=== PATIENT | female | born 1980 | race Caucasian/White ===

== ENCOUNTER 2016-08-29 18:48 | Emergency (ER) | payer BC ==
[~2016-08-29] VITALS: Ht 167.6 cm; Wt 106.6 kg
--- NOTE | 2016-08-29 19:00 | NUR ---
Patient to ER bed 8 to gown for evaluation. Side rails up. Report given to ELSY ORTIZ.
[2016-08-29 19:04] VITALS: BP 124/68; PULSE 97; RESP 14; TEMP 99.7; O2SAT 95
[2016-08-29] MEDS ORDERED: NACL 0.9% 1,000 ML IV ONE (19:09)
--- NOTE | 2016-08-29 19:10 | NUR ---
DR. NICHOLS AT BEDSIDE EXAMINING TH EPT.
[2016-08-29] MEDS ORDERED: HYDROmorphone 1 MG INJ. 1 MG/ML AMPUL IVP ONE (19:15)
--- NOTE | 2016-08-29 19:15 | NUR ---
PT. PRESENTED TO ER AAOx4 C/O FEVER AND CHILLS FOR PAST 45 MIN STATES SHE IS NAUSEOUS, DENIES SOB, DENIES V/D C/O ABD PAIN 04/27 S/P GASTRIC SLEEVE SURGERY PERFORMED YESTERDAY, CLEAR SPEECH, CLEAR LUNGS, CAP REFIL <2SECS N ALL EXTREMITIES, PULSES WNL, ON SCHOOL PATROL
[2016-08-29 19:45] LABS: BASOPHILS % (AUTO) 0.5 % (0.0-2.0); EOSINOPHILS # (AUTO) 0.1 K/uL (0.0-0.4); EOSINOPHILS % (AUTO) 1.3 % (0.0-4.0); HEMATOCRIT 35.9 % (36-48); HEMOGLOBIN 11.9 g/dL (12.0-16.0); LYMPHOCYTES # (AUTO) 0.5 K/uL (1.0-5.5); MEAN CORPUSCULAR HEMOGLOBIN 27 pg (27-31); MEAN CORPUSCULAR HGB CONC 33 % (32-36); MEAN CORPUSCULAR VOLUME 82 fL (79.0-98.0); MONOCYTES # (AUTO) 0.5 K/uL (0.0-1.0); MONOCYTES % (AUTO) 8.8 % (1.7-9.3); NEUTROPHILS # (AUTO) 4.4 K/uL (1.8-7.7); NEUTROPHILS % (AUTO) 80.4 % (40.0-70.0); PLATELET COUNT (AUTO) 196 K/uL (130-430); RED BLOOD CELL COUNT(AUTO) 4.41 MIL/uL (4.2-6.2); RED CELL DISTRIBUTION WIDTH 12.8 % (9.0-15.0); WHITE BLOOD COUNT (AUTO) 5.5 K/uL (4.8-10.8)
[2016-08-29 19:49] LABS: CALCIUM 8.4 mg/dL (8.4-11.0); CREATININE 0.77 mg/dL (0.55-1.30); POTASSIUM 4.3 mmol/L (3.5-5.1)
[2016-08-29 19:54] LABS: ALBUMIN 3.4 g/dL (3.4-4.8); TOTAL BILIRUBIN 0.3 mg/dL (0.0-1.0); TOTAL PROTEIN, SERUM 7.1 g/dL (6.4-8.3)
[2016-08-29] MEDS: ONDANSETRON HCL 4 MG/2 ML VIAL IVP ONE ×2 (20:00→20:04)
--- NOTE | 2016-08-29 20:25 | NUR ---
X RAY AT BEDSIDE
[2016-08-29 20:26] LABS: BILIRUBIN,URINE NEGATIVE (NEGATIVE); BLOOD, URINE 2+ (NEGATIVE); COLOR,URINE YELLOW (YELLOW); GLUCOSE,URINE NEGATIVE (NEGATIVE); KETONES,URINE 3+ (NEGATIVE); LEUKOCYTE ESTERASE ,URINE NEGATIVE (NEGATIVE); NITRITE, URINE NEGATIVE (NEGATIVE); PH,URINE 6.5 (5.0-8.0); PROTEIN URINE TRACE (NEGATIVE); UROBILINOGEN,URINE 0.2 (0.2-1.0)
[2016-08-29 20:33] LABS: CLARITY/URINE SLIGHTLY HAZY (CLEAR)
[2016-08-29 20:34] LABS: BACTERIA,URINE FEW /HPF (None Seen); MUCUS,URINE 1+ /LPF (None Seen); RBC,URINE 0-3 /HPF (0-3); WBC,URINE 0-3 /HPF (0-3)
--- NOTE | 2016-08-29 20:35 | NUR ---
TEMP 98.1 PT. RESTING STATING THE PAIN INTERVENTION WORKED, PAIN 09/25
--- NOTE | 2016-08-29 21:30 | NUR ---
PT. RESTING, NO COMPLAINTS, IV REPOSITIONED AND FLUSHED
[2016-08-29] MEDS ORDERED: DIATR MEGLU/DIATRIZ SOD 30 ML SOLUTION PO ONE (21:50)
[2016-08-29] MEDS ORDERED: ONDANSETRON HCL 4 MG/2 ML VIAL IVP ONE (22:00)
--- NOTE | 2016-08-29 22:10 | NUR ---
PT. GIVEN ORAL CONTRAST TO DRINK BY MOUTH
--- NOTE | 2016-08-29 22:15 | NUR ---
PT. OUT TO [facility] FOR CT VIA TRANSPORTATION IN A GURNEY ACCOMPANIED BY EMS
--- NOTE | 2016-08-30 | NUR ---
Pt is back via BLS from [facility] for CT scan.
--- NOTE | 2016-08-30 00:10 | NUR ---
Pt is resting in her bed. Pt has 9/10 abd pain and is in mild discomfort. made aware of pain. Pt placed back on community association manager and will continue to monitor. Vitals WNL except for fever. No other injuries or complaints mentioned/noted. No distress noted. Addendum: 08/30/16 at 0349 by LILY Pt was sating on 90% on room air due to shallow respirations. Placed on 2 LPM of O2 NC. made aware.
--- NOTE | 2016-08-30 00:10 | NUR ---
Pt has a fever of 101.2. Dr. Donaldson made aware. Orders recieved.
[2016-08-30] MEDS ORDERED: MORPHINE 4 MG/ML INJ. SYRINGE IVP ONE (00:15)
--- NOTE | 2016-08-30 00:15 | NUR ---
Sepsis protocol reviewed with Dr. Donaldson. No further change in orders at this time.
[2016-08-30] MEDS ORDERED: ACETAMINOPHEN 500 MG TABLET ONE (00:23)
[2016-08-30] MEDS ORDERED: ACETAMINOPHEN 500 MG TABLET PO ONE (00:30)
[2016-08-30 01:19] VITALS: BP 120/73; PULSE 98; RESP 16; TEMP 99.1; O2SAT 95
--- NOTE | 2016-08-30 01:19 | NUR ---
Patient given written and verbal discharge instructions and verbalizes understanding. ER MD discussed with patient the results and treatment provided. Patient in stable condition. ID arm band removed. IV catheter removed intact and dressing applied, no active bleeding. Rx of Azithromycin given. Patient educated on pain management and to follow up with PMD. Pain Scale 2/10. Opportunity for questions provided and answered.
== END 2016-08-30 01:19 | disposition home or self-care (01) ==
LOC: SED 18:48
DX: J18.9 Pneumonia, unspecified organism (principal); R10.13 Epigastric pain; F17.200 Nicotine dependence, unspecified, uncomplicated; Z98.84 Bariatric surgery status
CPT/HCPCS: 36415; 71010; 74160; 80053; 81000; 81025; 82150; 83690; 85025; 96361; 96374; 96375; 96376; 99285; J1170; J2270; J2405; J7030; Q9964